=== PATIENT | female | born 1970 | race American Indian/Alaskan Native ===

== ENCOUNTER 2018-10-05 12:34 | Emergency (ER) | payer OTHER ==
[2018-10-05 12:53] VITALS: BP 131/68
[2018-10-05] MEDS ORDERED: DECADRON IM ONE (15:53)
--- NOTE | 2018-10-05 15:53 | Emergency Department Report ---
ED Back Pain/Injury HPI - General Chief Complaint: Extremity Problem,Nontraumatic Stated Complaint: (R) LEG PAIN Time Seen by Provider: 10/05/18 15:29 Source: patient Limitations: No Limitations - History of Present Illness Initial Comments: Patient is a 48-year-old -[place] female who comes to the ER today complaining of acute on chronic leg pain. She states that she always has right leg pain due to a prior accident. The last couple days with cold weather her left leg has been hurting her. She has a history of arthritis. She states that she has a lot of leg pain is mostly around the time of her menses. She has no new trauma. She walks with a cane due to her disability. She denies urinary symptoms. She has no fever. She takes Tylenol 3 at home and that has provided no relief. She gets her normal care at the [facility] Similar Symptoms Previously: Yes Place: home Severity: moderate Quality: burning, sharp Consistency: intermittent Improves With: immobilization Worsens With: movement Context: other Associated Symptoms: denies other symptoms - Related Data Previous Rx's Medication Instructions Recorded Last Taken Type Cyclobenzaprine [Flexeril] 10 mg PO TID PRN #10 tablet 10/05/18 Unknown Rx methylPREDNISolone [Medrol] 4 mg PO DAILY #1 tab.ds.pk 10/05/18 Unknown Rx Allergies Allergy/AdvReac Type Severity Reaction Status Date / Time No Known Allergies Allergy Unverified 10/05/18 12:53 ED Review of Systems ROS: Stated complaint: (R) LEG PAIN Other details as noted in HPI Comment: All other systems reviewed and negative Constitutional: denies: chills Eyes: denies: eye pain ENT: denies: throat pain Respiratory: denies: cough Cardiovascular: denies: dyspnea on exertion Endocrine: denies: flushing Gastrointestinal: denies: nausea Genitourinary: denies: dysuria Musculoskeletal: as per HPI, other (CHRONIC RLE PAIN; TODAY LLE IS THE ONE SHE IS HAVING PAIN IN). denies: back pain Skin: denies: lesions Neurological: denies: weakness Psychiatric: denies: anxiety Hematological/Lymphatic: denies: easy bleeding ED Past Medical Hx - Past Medical History Medical history: arthritis, hyperlipidemia, hypertension. denies: DVT Chronic anemia Surgical history: no surgical history Psychiatric history: no pertinent history LMP comments: other (2 W AGO) Family history: no significant family history - Social History Alcohol use: none Drug use: none ED Back Pain Physical Exam - Exam General: Vital signs noted. No distress. Alert and acting appropriately. A/O S1S2 LUNGS CTA NO EDEMA OF LEGS DP PLUS 2 BILATERALLY NO CVA TENDERNESS ABD SNT Back/Abdomen: Yes Straight Leg Raise Pain (L), No Abdominal Tenderness, No Perithoracic Tenderness, No Perilumbar Tenderness, No Sacroiliac Tenderness, No Flank Tenderness Neuro: Yes Normal Sensation, Yes Normal DTR's, Yes Normal Gait, No Motor Weakness ED Course Vital Signs 10/05/18 12:49 Temperature 97.7 F Pulse Rate 77 Respiratory 16 Rate Blood Pressure 131/68 O2 Sat by Pulse 100 Oximetry - Reevaluation(s) Reevaluation #1: 10/05/18 16:02 HOME MEDS T3 VITAMINS LISINOPRIL HCTZ FE FISH OIL ED Medical Decision Making - Medical Decision Making POS L STRAIGHT LEG RAISE MEDICATED DC HOME W DC POC - Differential Diagnosis A/C PAIN Critical care attestation.: If time is entered above; I have spent that time in minutes in the direct care of this critically ill patient, excluding procedure time. ED Disposition Clinical Impression: Arthritis, Sciatica Disposition: DC-01 TO HOME OR SELFCARE Is pt being admited?: No Does the pt Need Aspirin: No Condition: Stable Instructions: Lumbar Radiculopathy (ED), Arthralgia (ED) Additional Instructions: REST WARM COMPRESSES GO TO PHARMACY GET FLEXERIL GO HOME AND TAKE FLEXERIL 10 MG WITH A TYLENOL NO 3 GET A WARM BATH FOLLOW UP WITH PCP IF PERSISTS Prescriptions: Cyclobenzaprine [Flexeril] 10 mg PO TID PRN #10 tablet PRN Reason: Muscle Spasm methylPREDNISolone [Medrol] 4 mg PO DAILY #1 tab.ds.pk Referrals: PUSHPA JOHN MD [Primary Care Provider] - 3-5 Days Time of Disposition: 15:54
[2018-10-05] MEDS ORDERED: IBUPROFEN PO ONE (15:54)
== END 2018-10-05 16:07 | disposition home or self-care (01) ==
LOC: ED 12:34
DX: M19.90 Unspecified osteoarthritis, unspecified site (principal); I10 Essential (primary) hypertension; E78.00 Pure hypercholesterolemia, unspecified; M54.31 Sciatica, right side
CPT/HCPCS: 96372; 99282; J1100